=== PATIENT | male | born 1960 | race Caucasian/White ===

== ENCOUNTER → 2018-09-19 | Outpatient (CLI) | payer OTHER ==
[~2018-09-19] VITALS: Ht 177.8 cm; Wt 79.4 kg
[~2018-09-19] MED LIST: ATORVASTATIN CA40 MG PO; LISINOPRIL20 MG PO; NABUMETONE 750750 M1 PO; TRAMADOL 50 MG50 MG PO; ZANAFLEX2 MG PO; ZANTAC 150MG T150 MG PO
[2018-09-19 09:59] VITALS: BP 128/75
[2018-09-19 13:10] VITALS: BP 138/84
[2018-09-19 13:15] VITALS: BP 150/84
[2018-09-19 13:20] VITALS: BP 143/81
[2018-09-19 13:25] VITALS: BP 137/83
[2018-09-19 13:35] VITALS: BP 149/73
--- NOTE | 2018-09-19 15:00 | NUR ---
PT ARRIVED FROM US WITH BANDAID DRESSING DRY AND INTACT TO LUMBAR AREA AT 1400. REMAINS D/I AT THIS TIME. PT ABLE TO AMBULATE IN HALLWAY WITHOUT ASSISSTANCE. STATES PAIN IS BETTER AND HE IS MOVING ABOUT BETTER. AT [facility]. POST RADIOLOGY INSTRUCTIONS GIVEN TO PT.
== END | disposition home or self-care (01) ==
LOC: CAT 08:58
DX: M71.38 Other bursal cyst, other site (principal); I10 Essential (primary) hypertension; Z79.899 Other long term (current) drug therapy